=== PATIENT | male | born 1980 | race Caucasian/White ===

== ENCOUNTER 2016-08-07 15:20 | Emergency (ER) | payer BC, MEDICAID ==
[2016-08-07 15:32] VITALS: BP 153/91
[2016-08-07] MEDS ORDERED: Acetaminophen/HYDROcodone 325-5 MG Tab PO ONE (15:49)
[2016-08-07] MEDS ORDERED: Ketorolac 60 MG/2 ML SDV IM ONE (15:49)
[2016-08-07] MEDS ORDERED: Cyclobenzaprine 10 MG Tab PO ONE (15:50)
--- NOTE | 2016-08-07 15:57 | EDM.PDOC ---
ED HPI GENERAL MEDICAL PROBLEM - General Chief Complaint: Back Pain or Injury Stated Complaint: BACK PAIN Time Seen by Provider: 08/07/16 15:51 Source of Information: Reports: Patient History Limitations: Reports: No Limitations - History of Present Illness INITIAL COMMENTS - FREE TEXT/NARRATIVE: pt lifted a empty pontoon trailer 2 days ago and he developed a definite twing in the back The next day he could bearly get out of bed. Today he has pain over the left buttock with some tingling. Onset: Other ( over the last 2 days. ) Duration: Hour(s): Location: Reports: Back Associated Symptoms: Reports: Other (pain in lower back. ) - Related Data Allergies Allergy/AdvReac Type Severity Reaction Status Date / Time No Known Allergies Allergy Verified 09/12/13 23:12 Home Meds: Home Meds NK [No Known Home Meds] 09/12/13 [History] Past Medical History - Past Health History Medical/Surgical History: Denies Medical/Surgical History Social & Family History - Tobacco Use Smoking Status *Q: Never Smoker Second Hand Smoke Exposure: No - Alcohol Use Days Per Week of Alcohol Use: 0 - Recreational Drug Use Recreational Drug Use: No ED ROS GENERAL - Review of Systems Review Of Systems: See Below Constitutional: Reports: No Symptoms HEENT: Reports: No Symptoms Respiratory: Reports: No Symptoms Cardiovascular: Reports: No Symptoms Endocrine: Reports: No Symptoms GI/Abdominal: Reports: No Symptoms : Reports: No Symptoms Skin: Reports: Other (pain in lower back more on the left and over the left buttock. ) Neurological: Reports: Tingling Psychiatric: Reports: No Symptoms ED EXAM,LOWER BACK PAIN/INJURY - Physical Exam Exam: See Below Text/Narrative:: Pt arrived with pain in lower back and pain over the left buttock with tingling over the buttock. Exam Limited By: No Limitations General Appearance: Alert, Anxious, Moderate Distress Ears: Normal External Exam Nose: Normal Inspection Throat/Mouth: Normal Inspection Head: Atraumatic Neck: Normal Inspection Respiratory/Chest: No Respiratory Distress Cardiovascular: Regular Rate, Rhythm GI/Abdominal: Soft, Non-Tender Rectal (Males) Exam: Deferred Back Exam: Other (pt is very tender over the lower lumbar area. He is very tight in the lower back. he has some pain over the left buttock. he does not have a positive straight leg raising test. ) Extremities: Normal Inspection Neurological: Alert Psychiatric: Normal Affect, Anxious Course - Vital Signs Last Recorded V/S: Last Vital Signs Temp 36.3 C 08/07/16 15:42 Pulse 84 08/07/16 15:42 Resp 14 08/07/16 15:42 BP 153/91 H 08/07/16 15:42 Pulse Ox 94 L 08/07/16 15:42 - Orders/Labs/Meds Orders: Active Orders 24 hr Category Date Time Status Lumbar Spine Min 4V [CR] Stat Exams 08/07/16 15:50 Taken Meds: Medications Discontinued Medications Generic Name Dose Route Start Last Admin Trade Name Jessenia PRN Reason Stop Dose Admin Hydrocodone Bitart/Acetaminophen 1 tab 08/07/16 15:49 08/07/16 15:57 [place] 325-5 Mg PO 08/07/16 15:50 1 tab ONETIME ONE Administration Cyclobenzaprine HCl 10 mg 08/07/16 15:50 08/07/16 15:57 Flexeril PO 08/07/16 15:51 10 mg ONETIME ONE Administration Ketorolac Tromethamine 60 mg 08/07/16 15:49 08/07/16 15:57 Toradol IM 08/07/16 15:50 60 mg ONETIME ONE Administration - Re-Assessments/Exams Free Text/Narrative Re-Assessment/Exam: 08/07/16 16:37 pt was given flexeril torodol and 1 percocet. He is definitely more comfortable. he had a lumbar spine series whis has some interspace narrowing at L4-l5. He also has narrowing at l5-s1. Departure - Departure Time of Disposition: 16:39 Disposition: Home, Self-Care 01 Condition: fair Clinical Impression: Spasm of back muscles - Discharge Information Instructions: Back Exercises, [id number] Referrals: Mj Zuniga MD [Primary Care Provider] - Forms: ED Department Discharge Care Plan Goals: ice to lower back for next 2 days then moist heat. -- send ice packs home with pt. rest, avoid lifting and pulling, flexeril 10mg 1 tab qam and 1 and 1/2 at bedtime. motrin 600mg tid, percocet 5/325as needed for severe pain. If persistent pain may need a Mri - My Orders Last 24 Hours: My Active Orders 08/07/16 15:50 Lumbar Spine Min 4V [CR] Stat - Assessment/Plan Last 24 Hours: My Active Orders 08/07/16 15:50 Lumbar Spine Min 4V [CR] Stat
--- NOTE | 2016-08-08 08:56 | CR ---
L-spine There is grade 1 spondylolisthesis at L5/S1. There is mild retrolisthesis at L4/5. There is mild dis c space loss at these levels as well as early facet hypertrophy. Remaining levels are unremarkable. Impression: 1. L5/S1 spondylolisthesis. L5 spondylolysis cannot be excluded. 2. Mild disc space loss and facet arthropathy.
== END 2016-08-07 16:51 | disposition home or self-care (01) ==
LOC: JP.ED 15:20
DX: M62.830 Muscle spasm of back (principal); X50.0XXA Overexertion from strenuous movement or load, initial encounter
CPT/HCPCS: 72110; 96372; 99284; A9270; J1885

== ENCOUNTER 2019-06-08 20:17 | Emergency (ER) | payer MEDICAID ==
[2019-06-08 20:40] VITALS: BP 123/79; PULSE 112
[2019-06-08] MEDS ORDERED: Ketorolac 30 MG/ML SDV IVPUSH ONE (21:13)
[2019-06-08] MEDS ORDERED: Ondansetron 4 MG/2 ML SDV IVPUSH ONE (21:13)
[2019-06-08] MEDS ORDERED: ceFAZolin 2 GM in Premix Bag 1 BAG IV ONE (21:18)
--- NOTE | 2019-06-08 21:54 | EDM.PDOC ---
ED HPI GENERAL MEDICAL PROBLEM - General Chief Complaint: Lower Extremity Injury/Pain Stated Complaint: RT KNEE SWELLING Time Seen by Provider: 06/08/19 20:50 Source of Information: Reports: Patient History Limitations: Reports: No Limitations - History of Present Illness INITIAL COMMENTS - FREE TEXT/NARRATIVE: 39-year-old male who has an intensely inflamed, reddened and painful right knee for the past 24 hours. Onset: Gradual Duration: Hour(s): (12 hours) Location: Reports: Lower Extremity, Right Associated Symptoms: Reports: Nausea/Vomiting. Denies: Fever/Chills Right Knee Pain Score (Numeric/FACES): 10 - Related Data Allergies Allergy/AdvReac Type Severity Reaction Status Date / Time No Known Allergies Allergy Verified 06/08/19 20:39 Home Meds: Home Meds Cetirizine HCl [Zyrtec] 1 tab PO Q12H PRN 06/08/19 [History] Past Medical History - Past Health History Medical/Surgical History: Denies Medical/Surgical History - Infectious Disease History Infectious Disease History: Reports: Chicken Pox Social & Family History - Family History Family Medical History: Noncontributory - Tobacco Use Smoking Status *Q: Never Smoker - Caffeine Use Caffeine Use: Reports: Coffee - Recreational Drug Use Recreational Drug Use: No Review of Systems - Review of Systems Review Of Systems: See Below Constitutional: Denies: Fever Respiratory: Denies: Shortness of Breath Cardiovascular: Denies: Chest Pain GI/Abdominal: Reports: Nausea Musculoskeletal: Reports: Leg Pain Skin: Reports: Erythema Neurological: Denies: Headache Psychiatric: Reports: No Symptoms ED EXAM, GENERAL - Physical Exam Exam: See Below Exam Limited By: No Limitations General Appearance: Alert, No Apparent Distress (Looks uncomfortable but not distressed) Head: Atraumatic Respiratory/Chest: No Respiratory Distress Extremities: Other (The right knee has an inflamed warm reddened patellar bursitis with a small excoriation over the tibial tuberosity anteriorly. No effusion or joint pain) Course - Vital Signs Last Recorded V/S: Last Vital Signs Temp 98.0 F 06/08/19 20:41 Pulse 112 H 06/08/19 20:41 Resp 16 06/08/19 20:41 BP 123/79 06/08/19 20:41 Pulse Ox 96 06/08/19 20:41 - Orders/Labs/Meds Meds: Medications Discontinued Medications Generic Name Dose Route Start Last Admin Trade Name Jessenia PRN Reason Stop Dose Admin Cefazolin Sodium/Dextrose 2 gm 50 mls @ 100 mls/hr 06/08/19 21:18 06/08/19 21 :27 / Premix IV 06/08/19 21:47 100 mls/hr ONETIME ONE Administration Ketorolac Tromethamine 30 mg 06/08/19 21:13 06/08/19 21:18 Toradol IVPUSH 06/08/19 21:14 30 mg ONETIME ONE Administration Ondansetron HCl 4 mg 06/08/19 21:13 06/08/19 21:18 Zofran IVPUSH 06/08/19 21:14 4 mg ONETIME ONE Administration - Re-Assessments/Exams Free Text/Narrative Re-Assessment/Exam: 06/09/19 00:[address] Kearney was obtained and IV antibiotics will be initiated. Patient was given 30 mg of IV Toradol along with 4 mg of IV Zofran. This was followed by 2 g of IV Ancef. Patient will return in 9 to 10 hours for a second dose of IV Ancef, followed by a third dose tomorrow evening at which time he may be able to be transitioned to oral antibiotics. Departure - Departure Time of Disposition: 22:32 Disposition: Home, Self-Care 01 Clinical Impression: Patellar bursitis of right knee - Discharge Information Instructions: Bursitis, [id number] Referrals: PCP,None [Primary Care Provider] - Forms: ED Department Discharge Care Plan Goals: Return tomorrow morning at the emergency room for a second dose of IV antibiotic , followed by a third dose tomorrow evening. Moist heat and elevation of the knee would be helpful. Ibuprofen along with stronger pain medication as prescribed for pain. Sepsis Event Note - Evaluation Sepsis Screening Result: No Definite Risk - Focused Exam Vital Signs: Vital Signs Temp Pulse Resp BP Pulse Ox 06/08/19 20:41 98.0 F 112 H 16 123/79 96 06/08/19 20:39 98.0 F 112 H 16 123/79 96 Date Exam was Performed: 06/09/19 Time Exam was Performed: 00:33
== END 2019-06-08 22:33 | disposition home or self-care (01) ==
LOC: JP.ED 20:17
DX: M70.51 Other bursitis of knee, right knee (principal)
CPT/HCPCS: 96365; 96375; 99283; J0690; J1885; J2405

== ENCOUNTER 2020-10-15 21:58 | Emergency (ER) | payer MEDICAID ==
--- NOTE | 2020-10-15 22:52 | EDM.PDOC ---
ED HPI GENERAL MEDICAL PROBLEM - General Chief Complaint: General Stated Complaint: HAND NUMBNESS,DIZZY,BLURRY VISION Time Seen by Provider: 10/15/20 22:36 Source of Information: Reports: Patient, Family, RN Notes Reviewed History Limitations: Reports: No Limitations - History of Present Illness INITIAL COMMENTS - FREE TEXT/NARRATIVE: 40-year-old gentleman presents emergency department day complaint of dizziness numbness and tingling in his fingertips he has had this for about 6 months it does wax and wane does not seem to be positional does not make any difference what position he has had in does not make any difference with times daily as he gets 3 or 4 bouts per day. He is concerned about a cerebrovascular accident - Related Data Allergies Allergy/AdvReac Type Severity Reaction Status Date / Time No Known Allergies Allergy Verified 10/15/20 22:24 Home Meds: Home Meds Cetirizine HCl [Zyrtec] 1 tab PO Q12H PRN 06/08/19 [History] Past Medical History HEENT History: Reports: Allergic Rhinitis Cardiovascular History: Reports: Arrhythmia Gastrointestinal History: Reports: GERD Musculoskeletal History: Reports: Other (See Below) Other Musculoskeletal History: right knee bursitis Neurological History: Reports: Headaches, Chronic - Infectious Disease History Infectious Disease History: Reports: Chicken Pox - Past Surgical History Musculoskeletal Surgical History: Reports: None Social & Family History - Family History Family Medical History: No Pertinent Family History - Tobacco Use Tobacco Use Status *Q: Never Tobacco User - Caffeine Use Caffeine Use: Reports: Coffee - Recreational Drug Use Recreational Drug Use: Yes ED ROS GENERAL - Review of Systems Review Of Systems: See Below Constitutional: Reports: No Symptoms HEENT: Reports: No Symptoms Respiratory: Reports: No Symptoms Cardiovascular: Reports: No Symptoms GI/Abdominal: Reports: No Symptoms Musculoskeletal: Reports: No Symptoms Neurological: Reports: Dizziness, Headache, Numbness, Tingling ED EXAM, GENERAL - Physical Exam Exam: See Below Free Text/Narrative:: Cranial nerves II test with pupillary light reflex 5 mm to 3 mm bilaterally, CN III test pupillary constriction, lid elevation and eye abduction bilaterally, CN IV downward movement of eyes bilaterally, CN V good jaw movement, CN lateral deviation of the eyes bilaterally to finger movement, CN VII symmetrical smile shows teeth without difficulty, CN VIII pass finger rub to ears bilaterally, CN IX adequate voice and tone, CN X adequate voice and tone no difficulty swallowing, CN XI can shrug shoulders without difficulty, CN XII can stick tongue out without difficulty, cranial nerves II to XII intact as tested, power is 5 out 5 in upper and lower extremities, can do finger to nose without difficulty, no dysdiadochokinesis, no difficulty with rapid alternating movements can do [id number] without difficulty, Romberg is positive, has adequate gait can do heel to toe, can toe walk and heel walk no cerebellar dysfunction , no focal neurologic deficit Exam Limited By: No Limitations General Appearance: Alert, WD/WN, No Apparent Distress Nose: Normal Inspection, Normal Mucosa, No Blood Throat/Mouth: Normal Inspection, Normal Lips, Normal Teeth, Normal Gums, Normal Oropharynx, Normal Voice, No Airway Compromise Head: Atraumatic, Normocephalic Neck: Normal Inspection, Supple, Non-Tender, Full Range of Motion Respiratory/Chest: No Respiratory Distress, Lungs Clear, Normal Breath Sounds, No Accessory Muscle Use, Chest Non-Tender Cardiovascular: Regular Rate, Rhythm, No Murmur GI/Abdominal: Soft, Non-Tender Course - Vital Signs Last Recorded V/S: Last Vital Signs Temp 97.7 F 10/15/20 22:27 Pulse 79 10/16/20 00:00 Resp 17 10/16/20 00:00 BP 130/87 10/16/20 00:00 Pulse Ox 97 10/16/20 00:00 - Orders/Labs/Meds Orders: Active Orders 24 hr Category Date Time Status Peripheral IV Care [RC] . DIRECTED Care 10/15/20 22:47 Active Iopamidol [Isovue-370 (76%)] Med 10/15/20 23:00 Active 100 ml IV . DIRECTED Sodium Chloride 0.9% [Normal Saline] 1,000 ml Med 10/15/20 23:00 Active IV ASDIRECTED Sodium Chloride 0.9% [Normal Saline] 100 ml Med 10/15/20 23:00 Active IV ASDIRECTED Sodium Chloride 0.9% [Saline Flush] Med 10/15/20 22:47 Active 10 ml FLUSH ASDIRECTED PRN Peripheral IV Insertion Adult [OM.PC] Urgent Oth 10/15/20 22:47 Ordered Medication Orders Sodium Chloride (Normal Saline) 1,000 mls @ 500 mls/hr IV ASDIRECTED MICHAEL Last Admin: 10/15/20 23:02 Dose: 500 mls/hr Documented by: DANTE Sodium Chloride (Normal Saline) 100 mls @ 3.5 mls/sec IV ASDIRECTED MICHAEL Last Admin: 10/16/20 00:15 Dose: 4 mls/sec Documented by: KAROL Iopamidol (Iopamidol 755 Mg/Ml 100 Ml Bottle) 100 ml IV . DIRECTED MICHAEL Last Admin: 10/16/20 00:15 Dose: 100 ml Documented by: KAROL Sodium Chloride (Sodium Chloride 0.9% 10 Ml Syringe) 10 ml FLUSH ASDIRECTED PRN PRN Reason: Keep Vein Open Last Admin: 10/16/20 00:15 Dose: 10 ml Documented by: Admin: 10/15/20 23:56 Dose: 10 ml Documented by: DANTE Labs: Laboratory Tests 10/15/20 10/15/20 10/15/20 Range/Units 22:55 22:55 22:55 WBC 7.7 (4.5-11.0) K/uL RBC 5.65 (4.30-5.90) M/uL Hgb 15.4 H (12.0-15.0) g/dL Hct 44.4 (40.0-54.0) % MCV 79 L (80-98) fL MCH 27 (27-31) pg MCHC 35 (32-36) % Plt Count 192 (150-400) K/uL Neut % (Auto) 42.6 (36-66) % Lymph % (Auto) 39.4 (24-44) % Eddy % (Auto) 10.6 H (2-6) % Eos % (Auto) 6.9 H (2-4) % Baso % (Auto) 0.5 (0-1) % Sodium 140 (140-148) mmol/L Potassium 3.9 (3.6-5.2) mmol/L Chloride 102 (100-108) mmol/L Carbon Dioxide 25 (21-32) mmol/L Anion Gap 12.6 (5.0-14.0) mmol/L BUN 19 H (7-18) mg/dL Creatinine 1.2 (0.8-1.3) mg/dL Est Cr Clr Drug Dosing 94.19 mL/min Estimated GFR (MDRD) > 60 (>60) Glucose 98 (74-106) mg/dL Lactic Acid 0.5 (0.4-2.0) mmol/L Calcium 8.9 (8.5-10.1) mg/dL Total Bilirubin 0.5 (0.2-1.0) mg/dL AST 24 (15-37) U/L ALT 34 (12-78) U/L Alkaline Phosphatase 67 (46-116) U/L Troponin I < 0.017 (0.000-0.056) ng/mL Total Protein 7.4 (6.4-8.2) g/dL Albumin 3.9 (3.4-5.0) g/dL Globulin 3.5 (2.3-3.5) g/dL Albumin/Globulin Ratio 1.1 L (1.2-2.2) Meds: Medications Generic Name Dose Route Start Last Admin Trade Name Freq PRN Reason Stop Dose Admin Sodium Chloride 1,000 mls @ 500 mls/hr 10/15/20 23:00 10/15/20 23:02 Normal Saline IV 500 mls/hr ASDIRECTED MICHAEL Administration Sodium Chloride 100 mls @ 3.5 mls/sec 10/15/20 23:00 10/16/20 00:15 Normal Saline IV 4 mls/sec ASDIRECTED MICHAEL Administration Iopamidol 100 ml 10/15/20 23:00 10/16/20 00:15 Iopamidol 755 Mg/Ml 100 Ml Bottle IV 100 ml . DIRECTED MICHAEL Administration Sodium Chloride 10 ml 10/15/20 22:47 10/16/20 00:15 Sodium Chloride 0.9% 10 Ml Syringe FLUSH 10 ml ASDIRECTED PRN Administration Keep Vein Open Discontinued Medications Generic Name Dose Route Start Last Admin Trade Name Freq PRN Reason Stop Dose Admin Sodium Chloride 10 ml 10/15/20 22:56 10/15/20 23:02 Sodium Chloride 0.9% 10 Ml Syringe FLUSH 10/15/20 22:57 10 ml ONETIME ONE Administration Departure - Departure Time of Disposition: 00:17 Disposition: Home, Self-Care 01 Condition: Fair Clinical Impression: Dizziness - Discharge Information Instructions: Dizziness, [id number] Referrals: Liliana Ma PA-C [Primary Care Provider] - Forms: ED Department Discharge Additional Instructions: Recommend stopping the Zyrtec recommend restarting allergy injections, please follow-up with your primary care for further evaluation, call return to the emergency department worsening of symptoms Sepsis Event Note (ED) - Evaluation Sepsis Screening Result: No Definite Risk - Focused Exam Vital Signs: Vital Signs Temp Pulse Resp BP Pulse Ox 10/16/20 00:00 79 17 130/87 97 10/15/20 22:27 97.7 F 102 H 18 135/91 H 96 10/15/20 22:26 97.7 F 102 H 18 135/91 H 96 - My Orders Last 24 Hours: My Active Orders 10/15/20 22:47 Peripheral IV Care [RC] . DIRECTED Sodium Chloride 0.9% [Saline Flush] 10 ml FLUSH ASDIRECTED PRN Peripheral IV Insertion Adult [OM.PC] Urgent 10/15/20 23:00 Iopamidol [Isovue-370 (76%)] 100 ml IV . DIRECTED Sodium Chloride 0.9% [Normal Saline] 1,000 ml IV ASDIRECTED Sodium Chloride 0.9% [Normal Saline] 100 ml IV ASDIRECTED - Assessment/Plan Last 24 Hours: My Active Orders 10/15/20 22:47 Peripheral IV Care [RC] . DIRECTED Sodium Chloride 0.9% [Saline Flush] 10 ml FLUSH ASDIRECTED PRN Peripheral IV Insertion Adult [OM.PC] Urgent 10/15/20 23:00 Iopamidol [Isovue-370 (76%)] 100 ml IV . DIRECTED Sodium Chloride 0.9% [Normal Saline] 1,000 ml IV ASDIRECTED Sodium Chloride 0.9% [Normal Saline] 100 ml IV ASDIRECTED Plan: Assessment Acuity = acute Site and laterality = dizziness Etiology = probably related to Zyrtec Manifestations = none Location of injury = Home Lab values = CBC, CMP, troponin, lactic acid within normal limits CT of the head angio head and your neck all within normal limits Plan I talked about the side effect profile Zyrtec dizziness is listed as a side effect he seemed to do better when he was on allergy shots and follow-up with primary care for further evaluation This note was dictated using [employer] recognition software please call with any questions on syntax or grammar.
[2020-10-15] MEDS ORDERED: Sodium Chloride 0.9% 10 ML Syringe FLUSH ONE (22:56)
[2020-10-15] MEDS ORDERED: Sodium Chloride 0.9% 100 ML IV SCH (23:00)
[2020-10-15] MEDS ORDERED: Iopamidol 755 Mg/ML 100 ML Bottle IV SCH (23:00)
[2020-10-15] MEDS ORDERED: Sodium Chloride 0.9% 1,000 ML IV SCH (23:00)
[2020-10-15] MEDS: Sodium Chloride 0.9% 10 ML Syringe FLUSH PRN (23:56)
--- NOTE | 2020-10-15 23:56 | CRLCT ---
For Patients: As a result of the Century Cures Act, medical imaging exams and procedure reports are released immediately into your electronic medical record. You may view this report before your referring provider. If you have questions, please contact your health care provider. INDICATION: Dizzy, change in vision Comparison: None Impression: NECK CTA: 1. No hemodynamically significant extracranial carotid or vertebral stenosis. HEAD CTA: 1. No hemodynamically significant intracranial stenosis. Dictated by Simeon Olivas MD @ 10/15/2020 11:56:25 PM Prelim Report By Dr. Simeon Olivsa @ 10/15/2020 11:56:37 PM ADDENDUM TECHNIQUE: After standard noncontrast head CT, high resolution axial CT images acquired through the head and neck following rapid intravenous administration of iodinated contrast. Multiplanar MIPS of cranial and cervical vasculature performed. FINDINGS: Noncontrast head CT: There is no intracranial hemorrhage or fluid collection. The gillespie-white matter differentiation is maintained. The ventricles are of normal morphology. The basal cisterns are clear. CTA head: There is normal filling of the intracranial vasculature; i.e. there is no large vessel occlusion or intracranial stenosis. There is no cerebral aneurysm or evidence for vascular malformation. CTA neck: There is no carotid or vertebral artery stenosis or dissection. The soft tissues of the neck are within normal limits. The cervical spine is in normal alignment. The lung apices are clear. IMPRESSION: Normal CT head, CTA head and neck. Please note that all CT scans at this facility use dose modulation, iterative reconstruction, and/or weight-based dosing when appropriate to reduce radiation dose to as low as reasonably achievable. Dictated by: Yariel Jonas MD @ 10/16/2020 07:02:58 (Electronically Signed)
--- NOTE | 2020-10-15 23:59 | CRLCT ---
For Patients: As a result of the Century Cures Act, medical imaging exams and procedure reports are released immediately into your electronic medical record. You may view this report before your referring provider. If you have questions, please contact your health care provider. INDICATION: Dizzy, change in vision Comparison: None Impression: NECK CTA: 1. No hemodynamically significant extracranial carotid or vertebral stenosis. HEAD CTA: 1. No hemodynamically significant intracranial stenosis. Prelim Report By Dr. Simeon Olivas @ 10/15/2020 11:56:47 PM ADDENDUM TECHNIQUE: After standard noncontrast head CT, high resolution axial CT images acquired through the head and neck following rapid intravenous administration of iodinated contrast. Multiplanar MIPS of cranial and cervical vasculature performed. FINDINGS: Noncontrast head CT: There is no intracranial hemorrhage or fluid collection. The gillespie-white matter differentiation is maintained. The ventricles are of normal morphology. The basal cisterns are clear. CTA head: There is normal filling of the intracranial vasculature; i.e. there is no large vessel occlusion or intracranial stenosis. There is no cerebral aneurysm or evidence for vascular malformation. CTA neck: There is no carotid or vertebral artery stenosis or dissection. The soft tissues of the neck are within normal limits. The cervical spine is in normal alignment. The lung apices are clear. IMPRESSION: Normal CT head, CTA head and neck. Please note that all CT scans at this facility use dose modulation, iterative reconstruction, and/or weight-based dosing when appropriate to reduce radiation dose to as low as reasonably achievable. Dictated by: Yariel Jonas MD @ 10/16/2020 07:03:09 (Electronically Signed)
--- NOTE | 2020-10-16 00:01 | CRLCT ---
For Patients: As a result of the Century Cures Act, medical imaging exams and procedure reports are released immediately into your electronic medical record. You may view this report before your referring provider. If you have questions, please contact your health care provider. INDICATION: Dizzy, change in vision TECHNIQUE: CT Head without i.v. contrast. Coronal and sagittal reformats were obtained. COMPARISON: None FINDINGS: CSF space: The ventricles are normal for age. Brain: No evidence of mass, acute infarction or hemorrhage is seen. No mass-effect or midline shift is seen. The brain parenchyma is otherwise normal in appearance with preservation of the gillespie-white matter junction. Calvarium: The visualized paranasal sinuses are well aerated. The mastoid air cells are clear. The visualized orbits are grossly unremarkable. The calvarium is unremarkable in appearance with no fractures identified. IMPRESSION: 1. No evidence of acute infarction, intracranial hemorrhage, or mass-effect seen. Please note that all CT scans at this facility use dose modulation, iterative reconstruction, and/or weight-based dosing when appropriate to reduce radiation dose to as low as reasonably achievable. Dictated by: Raffi Cueto MD @ 10/15/2020 23:59:36 (Electronically Signed)
[2020-10-16 00:03] VITALS: BP 130/87; PULSE 79
[2020-10-16] MEDS: Sodium Chloride 0.9% 10 ML Syringe FLUSH PRN (00:15)
== END 2020-10-16 00:26 | disposition home or self-care (01) ==
LOC: JP.ED 21:58
DX: R42 Dizziness and giddiness (principal); R20.0 Anesthesia of skin; R20.2 Paresthesia of skin
CPT/HCPCS: 36415; 70450; 70496; 70498; 80053; 83605; 84484; 85025; 99284; J7030; Q9967

== ENCOUNTER 2022-01-11 11:14 | Emergency (ER) | payer MEDICAID ==
[2022-01-11] MEDS ORDERED: Ketorolac 30 MG/ML SDV IVPUSH ONE (11:19)
[2022-01-11 11:20] VITALS: BP 111/76; PULSE 76
[2022-01-11 11:55] LABS: ESTIMATED GFR 77 mL/min (>60); TROPONIN I HIGH SENSITIVITY 4.2 pg/mL (<=60.3)
== END 2022-01-11 12:57 | disposition home or self-care (01) ==
LOC: JP.ED 11:14
DX: R07.89 Other chest pain (principal)
CPT/HCPCS: 36415; 71045; 80053; 83690; 84484; 85025; 85379; 96374; 99285; J1885

== ENCOUNTER 2023-05-19 16:46 | Emergency (ER) | payer MEDICAID ==
[2023-05-19 16:56] VITALS: BP 134/89; PULSE 70
== END 2023-05-19 17:55 | disposition home or self-care (01) ==
LOC: JP.ED 16:46
DX: H10.31 Unspecified acute conjunctivitis, right eye (principal); Z86.16 Personal history of COVID-19; Z79.899 Other long term (current) drug therapy
CPT/HCPCS: 99283

== ENCOUNTER 2024-12-22 11:11 | Emergency (ER) | payer MEDICAID ==
[2024-12-22 12:05] VITALS: BP 134/100; PULSE 80
== END 2024-12-22 13:09 | disposition home or self-care (01) ==
LOC: JP.ED 11:11
DX: M54.41 Lumbago with sciatica, right side (principal); Z86.16 Personal history of COVID-19; X50.1XXA Overexertion from prolonged static or awkward postures, initial encounter
CPT/HCPCS: 99283; A9270